=== PATIENT | female | born 1975 | race Caucasian/White ===

== ENCOUNTER → 2019-09-02 09:20 | Outpatient (BNVA) | payer MEDICARE, SELFPAY | PROVIDERS: Family Provider Nurse Practitioner Family; PCP Family Medicine; Referring Provider Family Medicine; Visit Provider Psychiatry & Neurology Neurology | DX: G56.01 Carpal tunnel syndrome, right upper limb (principal) | CPT/HCPCS: 95886; 95911 ==

== ENCOUNTER 2019-09-27 05:26 | Day surgery (SDC) | payer MEDICARE, SELFPAY ==
[2019-09-21 12:17] VITALS: BMI 22.5
[2019-09-21 12:36] VITALS: BMI 36.8
[2019-09-27 06:02] VITALS: BP 151/98; PULSE 82; RESP 18; TEMP 36.1; O2SAT 98
[2019-09-27] MEDS: sodium chloride 0.9% 1,000 ML 30 ML IV (06:16)
--- NOTE | 2019-09-27 06:19 | ANES.PREANE2 ---
Pre-Anesthetic Assessment Pre-Anesthetic Assessment: Height/Weight: Height 1.73 m Weight 109.769 kg Temp Pulse Resp BP Pulse Ox 97 F L 82 18 151/98 98 09/27/19 06:02 09/27/19 06:02 09/27/19 06:02 09/27/19 06:02 09/27/19 06:02 Preop Diagnosis: right carpal tunnel and long trigger finger Proposed Procedure: Operation Date: 09/22/19 15:30 Proposed Procedures p Carpal Tunnel Release [id number] G56.01 M65.331(Right) - Bubba Zabala DO s Trigger Finger Release(Right) - Bubba Zabala DO Operation Date: 09/27/19 07:00 Proposed Procedures p Carpal Tunnel Release [id number] [id number] G56.01 M65.331(Right) - Bubba Zabala DO s Trigger Finger Release(Right) - Bubba Zabala DO Last intake: Intake Last Liquid Date 09/26/19 Last Liquid Time 21:30 Last Solid Date 09/26/19 Last Solid Time 20:00 Social: Social History: Tobacco (quit) and No alcohol Exam: Pre-Anes Outpt Exam: alert, oriented x 3, clear to auscultation bilaterally and regular rate & rhythm Airway: Submandibular: WNL Cervical ROM: WNL MP: 3 Dentition: Other (missing upper right) Pulmonary: Pulmonary: None reported CV/HEM: CV/HEM: None reported : : None reported Hepatic: Hepatic: None reported GI: GI: GERD (controlled) Metabolic: Metabolic: Morbid obesity Musc/skel: Musc/skel: Lower Back Pain (chronic) Neuropsych: Neuropsych: None reported Anesthetic Plan: ASA status: 2 Anesthesia: Anesthesia Evaluation and MAC Risk of > 500 ml blood loss (7ml/kg in children): No Meds/Allergies Current Medications: Current Medications Generic Name Dose Route Start Last Admin Trade Name Freq PRN Reason Stop Dose Admin Sodium Chloride 1,000 mls @ 30 ml s/hr 09/27/19 05:45 09/27/19 06:16 Sodium Chloride 0.9% IV 09/28/19 05:44 30 mls/hr .Q24H MARKO Administration PFSH Anesthesia PFSH: Medical History Back pain Social History Smoking and tobacco status: former smoker Alcohol intake: never Data Anesthesia Cardiac Studies: No Data to Display
--- NOTE | 2019-09-27 07:01 | W.PM.OPSUD ---
Surgery/Procedure H&P Update DATE OF PROCEDURE: September 27, 2019 DATE H&P PERFORMED: 09/16/19 H&P UPDATE INFORMATION: I have reviewed H&P completed within last 30 days and No changes to prior documentation PREOP DIAGNOSIS: right carpal tunnel and long trigger finger PRIMARY INDICATION FOR PROCEDURE: as above right ctr right long finger trigger digit release PLANNED PROCEDURE: Operation Date: 09/22/19 15:30 Proposed Procedures p Carpal Tunnel Release [id number] G56.01 M65.331(Right) - Bubba Zabala DO s Trigger Finger Release(Right) - Bubba Zabala DO Operation Date: 09/27/19 07:00 Proposed Procedures p Carpal Tunnel Release [id number] G56.01 M65.331(Right) - DO frida Mcconnell Trigger Finger Release(Right) - Bubba Zabala DO
--- NOTE | 2019-09-27 07:02 | PM.OP ---
Operative Report Date of procedure: September 27, 2019 Pre-op Diagnosis: right carpal tunnel and long trigger finger Post-op diagnosis: same Procedure Done: Right carpal tunnel release right long finger trigger digit release Specimens removed/disposition: n/a Pathology: none sent Surgeon: Bubba Zabala Anesthesia: MAC and Local Tourniquet time (min): 25 Tourniquet time: at 250 mm Hg Complications: No complications Findings: Tight carpal tunnel Thickened tenosynovium about the tendons to right long finger Condition: stable Disposition: same day Brief History: 43-year-old white female with wrist pain and paresthesias in the median nerve distribution as well as triggering of her right long finger. Physical examination and electrodiagnostic studies are consistent with carpal tunnel syndrome. She has triggering of the right long finger with episodes of locking. Risk, benefits of potential complications surgical venture discussed with the patient. Risks include are not limited to: Failure to relieve all symptoms, possible recurrence of symptoms, wound healing complications, nerve/blood vessel/injury. Patient is agreeable to proceed with surgery all questions answered Procedure: 600 mg clindamycin Patient identified. Surgical site is signed. Surgical permit signed. Patient received 600 mg of Clindamycin IV for surgical prophylaxis. Patient was taken to the Operating Room. Patient was transferred to the Operating Room table. Patient was placed supine on the OR table. Patient received intravenous sedation. Time out was performed. The area of surgery of the right hand was injected with 10 cc of a 1:1 mixture of 1% lidocaine with epinephrine and 0.25% Marcaine. A tourniquet was placed about the upper aspect of the operative limb. Patient was then sterilely prepped and draped in usual fashion. The upper extremity was exsanguinated using an Esmarch bandage and the tourniquet was inflated to 250 mm of Hg pressure. A 2 cm transverse incision overlying the long finger flexor tendons in the area of the A1 agnieszka was made with a skin knife. The incision was deepened using tenotomy scissors exposing underlying flexor tendons and tendon sheath. Retractors were placed on the radial and ulnar aspects of the flexor tendons to the left long finger. Using tenotomy scissors the A1 agnieszka was released. Using a hemostat verified that the release was complete. Using a hemostat we remove the flexor tendons from the wound and inspected them. No tendon pathology was noted other than thickening of the overlying tenosynovium. A 4cm palmar incision was made with a #15 blade. Dissection carried down through skin and subcutaneous tissue. We incised the transverse carpal ligament. The transverse carpal ligament was undermined proximally. The wrist was extended and then using a pushing scissors technique, the proximal extent of the transverse carpal ligament was divided. We verified the release was complete. Using scissors technique dissection, we released the distal extent of the transverse carpal ligament and the deep layer of the palmar fascia to the level of the superficial palmar arch. The median nerve was identified as well as the recurrent branch that was preserved. No other pathology noted in the carpal tunnel. Once again, we verified the release was complete. The wounds were irrigated with sterile saline containing Betadine and sterile saline containing antibiotic solution. Skin closure was performed with interrupted sutures of 4-0 nylon. Antibiotic ointment was applied to the surgical incision. Sterile dressings were applied. The tourniquet was deflated. A volar plaster splint was applied with an Rajeev overwrap. The patient was aroused from sedation. Patient was taken to the outpatient surgery area. Patient tolerated the surgery well. All counts were correct.
[2019-09-27] MEDS: clindamycin 600 MG/50 ML PREMIX 100 MG IV (07:03)
[2019-09-27] MEDS: lidocaine 1% INJ 20 mL SUBCUT (07:34)
[2019-09-27] MEDS: neomycin-poly-bacitracin oint 28 gm 1 APPLIC TOPICAL (07:35)
[2019-09-27 08:01] VITALS: BP 130/81; PULSE 89; RESP 20; TEMP 36.1; O2SAT 97
[2019-09-27 08:23] VITALS: BP 120/85; PULSE 81; RESP 20; O2SAT 100
== END 2019-09-27 08:30 | disposition home or self-care (01) ==
PROVIDERS: Family Provider Nurse Practitioner Family; PCP Family Medicine; Visit Provider Orthopaedic Surgery
PROC: (CPT 64721; principal; 2019-09-27 07:00)
PROC: (CPT 26055; 2019-09-27 07:00)
DX: G56.01 Carpal tunnel syndrome, right upper limb (principal); M65.331 Trigger finger, right middle finger; K21.9 Gastro-esophageal reflux disease without esophagitis; E66.01 Morbid (severe) obesity due to excess calories; Z68.36 Body mass index [BMI] 36.0-36.9, adult; Z87.891 Personal history of nicotine dependence
CPT/HCPCS: 26055; 64721; 12345; J1580; J2001; J2704; J3010; J3490; J7030

== ENCOUNTER 2019-09-29 15:04 | Outpatient (CLI) | payer MEDICARE, SELFPAY | END 2019-09-29 15:05 | disposition home or self-care (01) | LOC: SPT 15:05 | PROVIDERS: Family Provider Nurse Practitioner Family; PCP Family Medicine; Visit Provider Orthopaedic Surgery | DX: Z98.890 Other specified postprocedural states (principal) | CPT/HCPCS: A6446; L3908 ==

== ENCOUNTER 2019-11-03 08:30 | Day surgery (SDC) | payer MEDICARE, SELFPAY ==
[2019-11-02 14:18] VITALS: BMI 36.5
--- NOTE | 2019-11-03 08:25 | W.PM.OPSUD ---
Surgery/Procedure H&P Update DATE OF PROCEDURE: November 03, 2019 DATE H&P PERFORMED: 11/03/19 H&P UPDATE INFORMATION: I have reviewed H&P completed within last 30 days and H&P is in [facility] EMR on date indicated PREOP DIAGNOSIS: left long trigger finger PLANNED PROCEDURE: Operation Date: 11/03/19 11:25 Proposed Procedures p Trigger Finger Release [id number] M65.332(Left) - Bubba Zabala DO
--- NOTE | 2019-11-03 08:26 | P.OP_ITS ---
Operative Report Date of procedure: November 03, 2019 Pre-op Diagnosis: left long trigger finger Post-op diagnosis: same Procedure Done: Release A1 agnieszka left long finger Pathology: none sent Surgeon: Bubba Zabala Anesthesia: MAC and Local Estimated blood loss (mL): 2 Tourniquet time (min): 15 Tourniquet time: at 250 mmHg Complications: No apparent complications Findings: no specific tendon pathology noted Condition: stable Disposition: same day Brief History: 43 y/o white female who is had complaints of bilateral long finger triggering. She is undergone previous release of the right long finger as well as carpal tunnel surgery and has done well. She is had persistent tri ggering of her left long finger. She is tried conservative treatments. She is aware of risk, benefits potential complications of surgery. Risks include but are not limited to infection, nerve/blood vessel/tendon injury, failure to relieve all pain potential recurrence of triggering. Medical complications can include blood clots, heart attack, stroke risk up to including . All questions were answered patient agreeable to proceed with surgery. Procedure: Patient identified. Surgical site was signed. Surgical permit was signed. The patient received 600 mg of clindamycin intravenously for surgical prophylaxis as she is penicillin allergic. She was taken to the operating. She is placed supine on the OR table. She is administered intravenous sedation. A digital block was made with 9 cc of a one-to-one mixture 1% lidocaine and half percent Marcaine both without epinephrine. Drinks placed at the upper aspect of the left upper extremity. The left upper extremities and sterilely prepped and draped. The patient developed a rash last time with Hibiclens alcohol and DuraPrep so today we used Hibiclens the alcohol and then ChloraPrep to hopefully avoid a rash. A timeout was performed. Operative limb was exsanguinated using Esmarch bandage tourniquet flighted 250 mmHg pressure. A transverse incision was made in the distal palm in line with the long finger. Self-retaining retractors placed in the wound. The flexor tendon sheath is identified. Using a number 11 blade we incised the leading edge of the A1 agnieszka. Then using a tenotomy scissor and a pushing scissors technique we release the A1 agnieszka in its entirety. I release the tendon sheath proximal to the A1 agnieszka. Tendons were inspected. Wound is irrigated with antibiotic containing sterile saline. Incision was closed with 4-0 nylon sutures on skin sterile dressings were applied. The patient was aroused from sedation and was able to flex and extend her left long finger without any triggering. She was taken back to outpatient surgery later to be discharged home. All counts are correct patient tolerated surgery well
--- NOTE | 2019-11-03 09:09 | W.PM.OPSUD ---
Surgery/Procedure H&P Update DATE OF PROCEDURE: November 03, 2019 DATE H&P PERFORMED: 11/03/19 H&P UPDATE INFORMATION: I have reviewed H&P completed within last 30 days and I have examined patient prior to procedure PREOP DIAGNOSIS: left long trigger finger PRIMARY INDICATION FOR PROCEDURE: left long finger pain an triggering PLANNED PROCEDURE: Operation Date: 11/03/19 11:25 Proposed Procedures p Trigger Finger Release [id number] M65.332(Left) - Bubba Zabala DO
--- NOTE | 2019-11-03 09:11 | W.PM.OPSUD ---
Surgery/Procedure H&P Update DATE OF PROCEDURE: November 03, 2019 DATE H&P PERFORMED: 11/03/19 H&P UPDATE INFORMATION: I have reviewed H&P completed within last 30 days, I have examined patient prior to procedure and No changes to prior documentation PREOP DIAGNOSIS: left long trigger finger PRIMARY INDICATION FOR PROCEDURE: Left long finger triggering and pain PLANNED PROCEDURE: Operation Date: 11/03/19 11:25 Proposed Procedures p Trigger Finger Release [id number] M65.332(Left) - Bubba Zabala DO
[2019-11-03 09:20] VITALS: BP 165/78; PULSE 77; RESP 18; TEMP 36.3; O2SAT 98
[2019-11-03] MEDS: sodium chloride 0.9% 1,000 ML 30 ML IV (09:28)
--- NOTE | 2019-11-03 10:14 | ANES.PREANE2 ---
Pre-Anesthetic Assessment Pre-Anesthetic Assessment: Height/Weight: Height 1.73 m Weight 108.862 kg Temp Pulse Resp BP Pulse Ox 97.4 F L 77 18 165/78 98 11/03/19 09:20 11/03/19 09:20 11/03/19 09:20 11/03/19 09:20 11/03/19 09:20 Preop Diagnosis: left long trigger finger Proposed Procedure: Operation Date: 11/03/19 11:25 Proposed Procedures p Trigger Finger Release [id number] M65.332(Left) - Bubba Zabala DO Last intake: Intake Last Liquid Date 11/02/19 Last Liquid Time 20:00 Last Solid Date 11/02/19 Last Solid Time 20:00 Social: Social History: Tobacco (quit) and No alcohol Exam: Pre-Anes Outpt Exam: alert, oriented x 3, clear to auscultation bilaterally and regular rate & rhythm Airway: Submandibular: WNL Cervical ROM: WNL MP: 3 Dentition: Other (missing upper right) History/ROS: No significant history except as noted Pulmonary: Pulmonary: None reported CV/HEM: CV/HEM: None reported : : None reported Hepatic: Hepatic: None reported GI: GI: None reported Metabolic: Metabolic: Morbid obesity Musc/skel: Musc/skel: Lower Back Pain Neuropsych: Neuropsych: None reported Anesthetic Plan: ASA status: 2 Anesthesia: Anesthesia Evaluation and MAC Risk of > 500 ml blood loss (7ml/kg in children): No Meds/Allergies Current Medications: Current Medications Generic Name Dose Route Start Last Admin Trade Name Freq PRN Reason Stop Dose Admin Sodium Chloride 1,000 mls @ 30 ml s/hr 11/03/19 09:00 11/03/19 09:28 Sodium Chloride 0.9% IV 11/04/19 08:59 30 mls/hr .Q24H MARKO Administration PFSH Anesthesia PFSH: Medical History Back pain Social History Smoking and tobacco status: former smoker Alcohol intake: never Data Anesthesia Cardiac Studies: No Data to Display
[2019-11-03] MEDS: clindamycin 600 MG/50 ML PREMIX 100 MG IV (10:32)
[2019-11-03] MEDS: lidocaine 1% INJ 20 mL SUBCUT (10:45)
[2019-11-03] MEDS: neomycin-poly-bacitracin oint 28 gm 1 APPLIC TOPICAL (11:06)
[2019-11-03 11:19] VITALS: BP 106/84; PULSE 74; RESP 18; TEMP 36.6; O2SAT 100
[2019-11-03 11:27] VITALS: BP 106/84; PULSE 92; RESP 18; O2SAT 97
== END 2019-11-03 11:48 | disposition home or self-care (01) ==
PROVIDERS: Family Provider Nurse Practitioner Family; PCP Family Medicine; Visit Provider Orthopaedic Surgery
PROC: (CPT 26055; principal; 2019-11-03 11:15)
DX: M65.332 Trigger finger, left middle finger (principal); Z87.891 Personal history of nicotine dependence; E66.01 Morbid (severe) obesity due to excess calories; Z68.36 Body mass index [BMI] 36.0-36.9, adult
CPT/HCPCS: 26055; 12345; 96365; J1580; J2001; J2250; J2704; J3010; J3490; J7030

== ENCOUNTER 2019-11-29 13:58 | Outpatient (CLI) | payer MEDICARE, SELFPAY ==
--- NOTE | 2019-12-03 15:58 | ONC CON_ITS ---
Dr. Ahmadi New Patient Note Patient: Deepthi Penn Unit #: [id number]: [id number] Dicatated By: Jerald Ahmadi M.D.Date of Visit: November 29, 2019 Onc MED New Patient/Consult Referring Physician: Chief Complaint: Hemochromatosis. History of Present Illness: This is a 43 year-old woman with elevated serum ferritin and laboratory evidence of hereditary hemochromatosis. She has degenerative disease of the spine with chronic back pain and she has fibromyalgia. She has been seeing Dr. Pereira for primary care, and for at least the past year she also has been followed for mildly elevated liver enzymes. Her most recent chemistry profile, from 09/20/2019, showed SGOT elevated at 79/33 U/L and SGPT 132/33 U/L with alkaline phosphatase slightly elevated at 117/104 U/L and bilirubin normal at 0.4 mg/dL. Renal function was normal with BUN 6 and creatinine 0.51 mg/dL. CBC was unremarkable with hemoglobin 13.2 g, white blood cell count 5400, and platelet count 265,000. Additional laboratory studies on 10/13/2019 included serum iron studies which showed elevated transferrin saturation at 51% and a ferritin level which was significantly elevated at 1021 ng/mL. An VEENA screen was negative. Ceruloplasmin level was normal at 21.2 mg/dL. She had further evaluation with an HFE gene analysis on 10/20/2019. 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 The H63D and the S65C mutations were not detected. She does complain that she has been more tired than normal. She is doing light work, though. ECOG score is 1. She has good appetite. She says she has been stress eating. She has had a weight gain in the range of 20 pounds this past month. She has not had fever. She says she feels hot all the time and she does have some hot flashes at night. She complains that her eyes are dry. She has not had sore mouth or throat and she has not had difficulty swallowing. She does not complain of shortness of breath, cough, or chest pain. He says she is nauseated all the time. She also has been having acid reflux symptoms. Her bowels chronically vary between constipation and diarrhea. She has not been aware of any blood in the stool. She had a colonoscopy somewhere in the range of 5 years ago. She has urinary frequency and nocturia. She has chronic back pain. She also complains that her joints are starting to hurt, mainly the knees, ankles, and feet. She also has had pain in both hands. She does not complain of headache. She has had spells of dizziness. She has no numbness/paresthesia or other focal neurologic symptoms. She does complain of having shaking spells lasting from an hour to an hour and a half. Past Medical History: Her medical history includes degenerative disease of the spine with chronic back pain and fibromyalgia. She has a history of endometriosis. Past Surgical History: Her surgical/procedural history includes carpal tunnel release on the right, cholecystectomy, tonsillectomy, trigger finger release on both hands, wisdom teeth extraction, hysterectomy with bilateral salpingo-oophorectomy in 1999, and tubal ligation in 1998. Medications: Cholecalciferol 1 (50 mcg ) Tablet Oral, Gabapentin 1 Capsule (of 300 mg) Oral t.i.d., HYDROcodone-Acetaminophen 1 Tablet (of 5-325 mg) Oral t.i.d., Meloxicam 1 (15 mg) Tablet Oral daily, tiZANidine HCl 1 (2 mg) Tablet Oral b.i.d. Allergies: Pencillins Social History: Ms. Penn is . She has disabled due to her back pain. She has a history of smoking at least 1 pack of cigarettes daily for somewhere in the range of 20 to 25 years. She quit smoking in 2018. She has had only rare alcohol use. Family History: Father of heart attack at age 61. Mother is still living at age 68. She has diabetes, hypertension, and rheumatoid arthritis. She has one brother who has high blood pressure and one sister who is in good health. Her paternal grandfather had colon cancer. Review Of Symptoms: Constitutional - She has been feeling more tired than normal. She is able to do light work. Her appetite has been okay. She has been stress eating. She says she has had a weight gain of 20 pounds in the last month. She has not had fever. She says she feels hot all the time, and she does have some hot flashes at night. Her ECOG score is 1, Eyes - She complains that her eyes are dry, ENMT - No hearing loss or tinnitus. She says her nose tends to be plugged when she wakes up in the morning. No mouth sores. No sore throat or difficulty swallowing, Hematologic/Lymphatic - She bruises very easily, Respiratory - No shortness of breath. No cough. No pleuritic pain or hemoptysis, Cardiovascular - No angina pain. No palpitations, Gastrointestinal - She complains that she is nauseated all the time. She has been having acid reflux. She says the famotidine is not working. Her bowels vary between constipation and diarrhea. She has not been aware of any blood in the stool or black stools. She had a colonoscopy about 5 years ago, Genitourinary (F) - No dysuria or hematuria. She has urinary frequency and she has nocturia 3 or 4 times. No urgency or incontinence, Musculoskeletal - She has chronic back pain. She complains that her joints are starting to hurt, particularly the knees, ankles, and feet. She also has had pain in her hands, Integumentary - No skin rash or other skin changes, Neurologic - No headache. She has spells of dizziness. No numbness/paresthesias or other focal neurologic symptoms, Psychiatric - She has had anxiety and depression, and she has a lot of stress. She does not sleep well at night. Vital Signs: Performed on November 29, 2019 14:33: 6, 39.08 (HIGH), 2.27 sq.m, 68 in, 98 %, 88 /min, 18 /min, 112/82 mm(hg), 98.4 F, and 257 lbs (HIGH). Physical Examination: Constitutional - She appears to be in reasonably good general health, Eyes - Sclerae nonicteric. Conjunctivae clear, ENMT - No lesions noted in the oral cavity, Neck - No mass or thyromegaly, Hematologic/Lymphatic - No cervical, clavicular, or axillary adenopathy, Respiratory - Lungs are clear with good air movement bilaterally, Cardiovascular - Heart rhythm is regular. There is no murmur, gallop, or rub noted, Abdomen - Distended with mild tenderness in the upper abdomen. Liver is not enlarged or tender. Spleen is not palpable. There is no abdominal mass or ascites noted and there is no inguinal adenopathy, Back/Spine - No spine or CVA tenderness noted, Extremities - No edema. Pedal pulses are palpable bilaterally, Integumentary - No rashes. No suspicious skin lesions noted, Neurologic - No focal neurologic deficits noted. Lab/Imaging: Ultrasound of the liver in February 2019 was unrevealing. Impression: 1. Patient was significantly elevated serum ferritin and with evidence of heterozygosity for the C282Y mutation on her HFE gene analysis. This is consistent with hereditary hemochromatosis, but it is uncertain to what extent the elevated ferritin may accurately reflect her storage iron, as her transferrin saturation is just slightly elevated. 2. She has mildly elevated liver enzymes and she also has had recent onset of joint pain. Again, it is uncertain to what extent either of these may be due to iron overload or to other causes. 3. She has degenerative disease of the spine with chronic back pain, and she has fibromyalgia. Plan: The laboratory findings and clinical implications were reviewed with the patient. She has evidence of hereditary hemochromatosis with her HFE gene analysis showing heterozygosity for the C282Y mutation. The main concern is that individuals with this genotype may have mildly elevated iron levels, but they generally do not have organ damage associated with iron overload, and they typically do not require treatment. Her ferritin level, though, is in a range which would potentially be associated with organ damage. The issue, as noted, is to what extent it may actually reflect her storage iron as opposed to being elevated as an acute phase reactant. At least initially I will repeat some of her laboratory studies including the CBC, comprehensive metabolic profile, serum iron studies, and ferritin. I also will check sed rate, CRP level, and RA titer, and I will schedule her for CT of the abdomen to assess liver. She will have further evaluation as indicated. Ultimately, this may require a liver biopsy to accurately determine if she does have iron overload, in which case, she would need to be started on a phlebotomy program. Signed By: Jerald Ahmadi M.D. <<Signature on File>>
== END 2019-11-29 13:59 | disposition home or self-care (01) ==
LOC: ONCMED 13:58
PROVIDERS: PCP Family Medicine; Referring Provider Family Medicine; Visit Provider Internal Medicine Medical Oncology
DX: E83.110 Hereditary hemochromatosis (principal); M48.9 Spondylopathy, unspecified; M79.7 Fibromyalgia
CPT/HCPCS: 99205

== ENCOUNTER 2019-12-06 08:49 | Outpatient (CLI) | payer MEDICARE, SELFPAY ==
--- NOTE | 2019-12-06 09:05 | CT_ITS ---
WS: [id number] CT ABDOMEN WITH CONTRAST HISTORY: ELEVATED LIVER ENZYMES Contiguous single phase 5 mm axial imaging performed to the abdomen. Oral contrast has been provided. Coronal and sagittal reformats are submitted. All CT scans at [facility] use at least on e of these dose optimization techniques: automated exposure control; mA and/or kV adjustment per kendal ent size (includes targeted exams where dose is matched to clinical indication); or iterative reconst ruction. CONTRAST: Omnipaque 300; 95 mL IV. DLP: 1765.58 mGy.cm COMPARISON: 03/27/2014 Lower thorax: Benign granuloma at the lingula. No pneumonia or nodules. Small hiatal hernia. Liver: Liver is moderately enlarged measuring 20.1 cm in length. There is diffuse low attenuation fro m hepatic steatosis. Portal vein is normal size. No mass. Gallbladder: Prior cholecystectomy. Pancreas: Normal. Spleen: Normal. Adrenals: Fatty tumor in the RIGHT adrenal gland measures 18 mm and was present on the prior study. L EFT adrenal gland is normal. Right kidney: Small extrarenal pelvis on the RIGHT. No mass or obstruction. Left kidney: Normal. Aorta: Normal. GI tract: As visualized within the upper abdomen no acute abnormalities. Mild fecal retention in the RIGHT colon. No adenopathy or free fluid. Abdominal wall: No hernia. Visualized osseous structures: Unremarkable. CT/CT abdomen w con* [id number] IMPRESSION: 1. Moderate hepatomegaly and hepatic steatosis. 2. Normal spleen. 3. RIGHT adrenal myelolipoma. 4. Prior cholecystectomy.
[2019-12-06] MEDS: iohexol 300 mg/mL 50 mL Btl PO (09:10)
[2019-12-06 09:40] LABS: Basophils % 0.7 %; Eosinophils # 0.3 10^3/uL (0.0-0.8); Eosinophils % 6.3 %; Hematocrit 42.3 % (37.0-47.0); Hemoglobin 13.6 g/dL (11.5-15.3); Lymphocytes % 36.3 %; Mean Corpuscular HGB Conc 32.2 g/dL (30.0-36.0); Mean Corpuscular Hemoglobin 30.4 pg (28.0-34.0); Mean Corpuscular Volume 94.6 fL (81-99); Mean Platelet Volume 10.8 fL (7.4-10.4); Monocytes # 0.6 10^3/uL (0.2-0.9); Monocytes % 11.4 %; Neutrophils # 2.4 10^3/uL (1.8-7.7); Neutrophils % 44.9 %; Nucleated Red Blood Cells % 0 %; Platelet Count 266 10^3/cmm (130-400); Red Blood Count 4.47 10^6/uL (4.1-5.3); Red Cell Distribution Width 12.8 % (12.1-15.1); White Blood Count 5.4 10^3/uL (4.0-10.0)
[2019-12-06 09:56] LABS: Alanine Aminotransferase 299 U/L (0-33); Albumin Level 4.7 g/dL (3.5-5.2); Alkaline Phosphatase 125 IU/L (35-105); Anion Gap 15.3 (5-19); Aspartate Amino Transferase 177 U/L (0-32); Blood Urea Nitrogen 12 mg/dL (6-20); C Reactive Protein 2.7 mg/L (0.0-4.9); Calcium 10.4 mg/dL (8.5-10.5); Carbon Dioxide 28 mmol/L (22-29); Chloride 102 mmol/L (98-107); Globulin 2.7 g/dL (1.3-4.6); Glomerular Filtration Rate 78.3 mL/min (90-130); Glucose 117 mg/dL (65-115); Iron 142 ug/dL (37-145); Osmolality Calculated 289 mOsm/kg (285-295); Percent Saturation 47.6 % (20-50); Potassium 4.3 mmol/L (3.5-5.1); Sodium 141 mmol/L (136-145); Total Bilirubin 0.6 mg/dL (0.15-1.2); Total Iron Binding Capacity 298 mcg/dl; Total Protein 7.4 g/dL (6.6-8.7); Unsaturated Iron Binding 156 ug/dL (112-347)
[2019-12-06 10:09] LABS: Ferritin 1007 ng/mL (15-150)
[2019-12-06 10:28] LABS: Erythrocyte Sedimentation Rate 12 mm/hr (0-15)
[2019-12-06] MEDS: iohexol 300 mg/mL 100 mL Btl IV (10:50)
== END 2019-12-06 08:50 | disposition home or self-care (01) ==
LOC: RAD 08:53
PROVIDERS: PCP Family Medicine; Visit Provider Internal Medicine Medical Oncology
DX: R74.8 Abnormal levels of other serum enzymes (principal); R16.0 Hepatomegaly, not elsewhere classified; K76.0 Fatty (change of) liver, not elsewhere classified; D17.79 Benign lipomatous neoplasm of other sites; Z90.49 Acquired absence of other specified parts of digestive tract
CPT/HCPCS: 36415; 74160; 80053; 82728; 83540; 83550; 85025; 85651; 86140; 86431

== ENCOUNTER 2020-01-02 10:33 | Outpatient (CLI) | payer MEDICARE, SELFPAY ==
[2020-01-02 11:26] LABS: Free T4 Free Thyroxine 1.13 ng/dL (0.82-1.77); Thyroid Stimulating Hormone 1.53 uIU/mL (0.27-4.20)
== END 2020-01-02 10:34 | disposition home or self-care (01) ==
LOC: ONCMED 10:37
PROVIDERS: PCP Family Medicine; Visit Provider Internal Medicine Medical Oncology
DX: R63.5 Abnormal weight gain (principal); R53.83 Other fatigue
CPT/HCPCS: 36415; 84439; 84443

== ENCOUNTER 2020-01-06 10:55 | Outpatient (CLI) | payer MEDICARE, SELFPAY ==
[2020-01-06 13:10] LABS: Urine Appearance Hazy (CLEAR); Urine Color Yellow (Yellow); pH Urine 5 (5-7)
[2020-01-06 13:11] LABS: Add Urine Microscopic? YES; Bilirubin Urine 1+ (NEGATIVE); Blood Urine Neg (Negative); Glucose Urine UA Norm (Normal); Ketones Urine 1+ (Negative); Leukocyte Esterase Urine Negative (Negative); Nitrate Urine Negative (Negative); Protein Urine Trace (Negative); Urobilinogen Urine 1 mg/dL (Negative)
[2020-01-06 13:12] LABS: Add Urine Culture? No; Bacteria Urine 1+; Calcium Oxalate Crystals Urine 15-25 /hpf; Mucus Urine 1+
--- NOTE | 2020-01-06 19:20 | ONC FU_ITS ---
Dr. Ahmadi Patient Follow-Up Note Patient: Deepthi Penn Unit #: [id number]: 1975 Dicatated By: Jerald Ahmadi M.D.Date of Visit:Jan 06, 2020 Onc Med Follow-up/Prog Note Chief Complaint: Hemochromatosis. History of Present Illness: This is a 44 year-old woman with elevated serum ferritin and laboratory evidence of hereditary hemochromatosis. She has degenerative disease of the spine with chronic back pain and she has fibromyalgia. She has been seeing Dr. Pereira for primary care, and for at least a year she had been followed for mildly elevated liver enzymes. Her chemistry profile from 09/20/2019 showed SGOT elevated at 79/33 U/L and SGPT 132/33 U/L with alkaline phosphatase slightly elevated at 117/104 U/L and bilirubin normal at 0.4 mg/dL. Renal function was normal with BUN 6 and creatinine 0.51 mg/dL. CBC was unremarkable with hemoglobin 13.2 g, white blood cell count 5400, and platelet count 265,000. Additional laboratory studies on 10/13/2019 included serum iron studies which showed elevated transferrin saturation at 51% and a ferritin level which was significantly elevated at 1021 ng/mL. An VEENA screen was negative. Ceruloplasmin level was normal at 21.2 mg/dL. She had further evaluation with an HFE gene analysis on 10/20/2019. 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 The H63D and the S65C mutations were not detected. I had seen her initially on 11/29/2019. Her repeat comprehensive metabolic profile on 12/06/2019 showed moderately elevated liver enzymes with SGOT 177/30 2U/L, SGPT 299/30 3U/L, and alkaline phosphatase 125/105 IUs/L. Bilirubin was normal at 0.6 mg/dL. The serum iron studies showed transferrin saturation in the high normal range at 47.6%. The ferritin was elevated at 1007 ng/mL. Her sed rate was normal at 12 mm/hour, and her RA titer was negative. Her CT abdomen/pelvis showed moderate hepatomegaly with hepatic steatosis. The spleen appeared normal. 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 It had been noted on a prior study from 2013. She is seen for a follow-up visit. She has been having multiple complaints, especially dizziness/lightheadedness. She has been getting it pretty much every day in the morning for the past week or so, lasting until about noon. She complains that she has no energy and that she is tired all the time. She is able to do light work. ECOG score is 1. She does not have much appetite, she is gaining weight. She has not had fever. She has lots of sweating, both during the daytime and at night. She complains of having blurred vision. She has been getting canker sores in her mouth during the last few months. Her breathing has been good for the most part, and she has not had cough. She occasionally has heaviness in her chest. She has been having nausea and she has been having a lot of heartburn, despite taking omeprazole. Her bowels fluctuate between constipation and diarrhea. She has occasional sharp pain in the abdomen. She has urinary frequency and nocturia. She has been having a lot of joint pain, especially in the wrists, knees, and ankles. She has a lot of back pain. She reports that her muscles have been cramping a lot. She has numbness/tingling in her feet. She has a cut on her right heel that will not heal. Medications: Cholecalciferol 1 (50 mcg ) Tablet Oral, Gabapentin 1 Capsule (of 600 mg) Oral t.i.d., HYDROcodone-Ibuprofen 1 Tablet (of 7.5-200 mg) Oral q 6 hours PRN, tiZANidine HCl 1 (2 mg) Tablet Oral b.i.d. Allergies: Pencillins Review of Systems: Constitutional - She complains that she has no energy. She is tired all the time. She does not have much appetite, but she is gaining weight. She has not had fever. She reports having a lot of sweating both during the daytime and at night. ECOG score is 1, Eyes - She has blurred vision, ENMT - No sinus congestion/drainage. She reports having canker sores intermittently during the past few months. No sore throat or difficulty swallowing, Hematologic/Lymphatic - She bruises easily, Respiratory - Her breathing recently has been good for the most part. No cough. No pleuritic pain or hemoptysis, Cardiovascular - She occasionally has heaviness in her chest. No palpitations, Gastrointestinal - She has nausea and she says her GERD symptoms are worse despite taking omeprazole. Her bowels fluctuate between constipation and diarrhea. She occasionally has sharp pain in the abdomen. No blood in the stool or black stools, Genitourinary (F) - No dysuria or hematuria. She has urinary frequency and nocturia. No urgency or incontinence, Musculoskeletal - She complains that her joints are hurting a lot, particularly the knees, wrists, and ankles, Integumentary - She has a cut on her right heel that will not heal, Neurologic - No headache. She has dizziness. She has numbness/tingling in her feet. No other focal neurologic symptoms, Psychiatric - She has anxiety/depression. She has difficulty sleeping. Vital Signs: Blood pressure 113/78, pulse 87, respirations 22, temp 97.4 degrees, oxygen saturation 98%. Her weight is 260 pounds. Physical Examination: Constitutional - She does not appear acutely ill, Eyes - Sclerae nonicteric. Conjunctivae clear, ENMT - No lesions noted in the oral cavity, Hematologic/Lymphatic - No cervical, clavicular, or axillary adenopathy, Respiratory - Lungs are clear with good air movement bilaterally, Cardiovascular - Heart rhythm is regular. There is no murmur, gallop, or rub noted, Abdomen - Soft with mild tenderness in the upper abdomen and in the lower abdominal area. Liver and spleen are not enlarged. There is no abdominal mass or ascites noted and there is no inguinal adenopathy, Extremities - No edema, Neurologic - She has mild postural instability. There are no focal neurologic deficits noted. Lab/Imaging: Test performed on December 06, 2019 09:25 Ferritin 1007 ng/mL Iron 142 mcg/dL Sodium 141 mmol/L Iron Binding Capacity (TIBC) 298 mcg/dl Potassium 4.3 mmol/L % Iron Saturation 47.6 % Chloride 102 mmol/L CO2 28 mmol/L UIBC 156 mcg/dL Anion Gap 15.3 BUN 12 mg/dL Creatinine 0.8 mg/dL Cr Clearance (Est) 166.8700 mL/min eGFR 78.3 mL/min Glucose 117 mg/dL Calcium 10.4 mg/dL Protein, Total 7.4 g/dL Albumin 4.7 g/dL Globulin 2.7 g/dL Bilirubin, Total 0.6 mg/dL ALT (SGPT) 299 U/L AST (SGOT) 177 U/L Alkaline Phosphatase 125 IU/L ESR (Sed Rate) 12 mm/hr WBC 5.4 10 3/uL RBC 4.47 10 6/uL HGB 13.6 g/dL HCT 42.3 % MCV 94.6 fL MCH 30.4 pg MCHC 32.2 g/dL RDW 12.8 % Platelet Count 266 10 3/cmm MPV 10.8 fL Neutrophils 2.4 10 3/uL Lymphocytes 2.0 10 3/uL Monocytes 0.6 10 3/uL Eosinophils 0.3 10 3/uL Basophils 0.0 10 3/uL Neutrophil % 44.9 % Lymphocyte % 36.3 % Monocyte % 11.4 % Eosinophil % 6.3 % Basophils % 0.7 % Impression: 1. Patient with heterozygosity for the C282Y mutation on her HFE gene analysis. This is consistent with hereditary hemochromatosis, but it is uncertain to what extent it may be clinically significant. 2. Her transferrin saturation is in the upper normal range, which is typical for the heterozygous state. Her serum ferritin it is significantly elevated, but I suspect that it is not accurate indication of elevated storage iron. 3. She has moderately elevated liver enzymes with CT evidence of moderate hepatomegaly and hepatic steatosis, consistent with nonalcoholic steatohepatitis. 4. She has degenerative disease of the spine with chronic back pain, and she has fibromyalgia. I have not recommended treatment for hemochromatosis, as I do not think that the elevated ferritin is reflective of increased storage iron. She does need to see a primer inspector in regard to the nonalcoholic steatohepatitis, and the liver biopsy may be indicated to actually rule out excess storage iron in the liver. That referral is apparently in process. In the meantime, she comes in with multiple complaints, the most significant of which appear to be dizziness/lightheadedness. I think this may just be a side effect of the gabapentin, which she had started fairly recently. Plan: She is advised to stop the gabapentin. I also will see if I can change her PPI from omeprazole to Protonix, preferably twice a day we can get it covered. I will look into the possibility of arranging referral to a primer inspector in [place], which she would prefer over going to [place]. Signed By: Jerald Ahmadi M.D. <<Signature on File>>
== END 2020-01-06 10:56 | disposition home or self-care (01) ==
LOC: ONCMED 10:58
PROVIDERS: PCP Family Medicine; Visit Provider Internal Medicine Medical Oncology
DX: E83.110 Hereditary hemochromatosis (principal); R35.0 Frequency of micturition; R35.1 Nocturia; R74.8 Abnormal levels of other serum enzymes; R42 Dizziness and giddiness; R16.0 Hepatomegaly, not elsewhere classified; K76.0 Fatty (change of) liver, not elsewhere classified; M47.9 Spondylosis, unspecified; M79.7 Fibromyalgia
CPT/HCPCS: 81001; 99214

== ENCOUNTER 2020-01-16 10:48 | Outpatient (CLI) | payer MEDICARE, SELFPAY ==
[2020-01-16 11:17] LABS: Add Urine Microscopic? NO
[2020-01-16 12:36] LABS: Bilirubin Urine Neg (NEGATIVE); Blood Urine Neg (Negative); Glucose Urine UA Norm (Normal); Ketones Urine Negative (Negative); Leukocyte Esterase Urine Negative (Negative); Nitrate Urine Negative (Negative); Protein Urine Neg (Negative); Urine Appearance Clear (CLEAR); Urine Color Straw (Yellow); Urobilinogen Urine Norm (Negative); pH Urine 6.5 (5-7)
== END 2020-01-16 10:49 | disposition home or self-care (01) ==
LOC: ONCMED 10:51
PROVIDERS: PCP Family Medicine; Visit Provider Internal Medicine Medical Oncology
DX: E83.110 Hereditary hemochromatosis (principal); M79.7 Fibromyalgia; M47.9 Spondylosis, unspecified; N80.9 Endometriosis, unspecified
CPT/HCPCS: 81003

== ENCOUNTER → 2020-03-23 10:14 | Outpatient (BNVA) | payer MEDICARE, SELFPAY | PROVIDERS: PCP Family Medicine; Visit Provider Internal Medicine | DX: M60.9 Myositis, unspecified (principal); Z79.899 Other long term (current) drug therapy; Z11.59 Encounter for screening for other viral diseases; Z11.1 Encounter for screening for respiratory tuberculosis | CPT/HCPCS: 36415; 81003; 82550; 83516; 84100; 85651; 86140; 86431; 86480; 86704; 86803; 87340; 99203; 99204 ==

== ENCOUNTER → 2020-04-13 08:56 | Outpatient (BNVA) | payer MEDICARE, SELFPAY | PROVIDERS: PCP Family Medicine; Referring Provider Internal Medicine; Visit Provider Specialist | DX: M60.9 Myositis, unspecified (principal); M79.7 Fibromyalgia; K75.81 Nonalcoholic steatohepatitis (NASH); E66.01 Morbid (severe) obesity due to excess calories | CPT/HCPCS: 99202 ==

== ENCOUNTER → 2020-07-11 11:15 | Outpatient (BNVA) | payer MEDICARE, SELFPAY | PROVIDERS: PCP Family Medicine; Visit Provider Internal Medicine | DX: R74.8 Abnormal levels of other serum enzymes (principal); E83.119 Hemochromatosis, unspecified; M79.7 Fibromyalgia; M62.82 Rhabdomyolysis; G62.9 Polyneuropathy, unspecified; M79.606 Pain in leg, unspecified; Z87.891 Personal history of nicotine dependence | CPT/HCPCS: 99214 ==

== ENCOUNTER → 2020-08-09 09:21 | Outpatient (BNVA) | payer MEDICARE, SELFPAY | PROVIDERS: PCP Family Medicine; Visit Provider Surgery | DX: Z01.812 Encounter for preprocedural laboratory examination (principal); M60.9 Myositis, unspecified | CPT/HCPCS: 87635 ==

== ENCOUNTER 2020-08-13 05:48 | Day surgery (SDC) | payer MEDICARE, SELFPAY ==
[2020-08-10 13:29] VITALS: BMI 39.5
[2020-08-13 05:59] VITALS: BP 151/98; PULSE 82; RESP 20; TEMP 36.4; O2SAT 98
[2020-08-13] MEDS: sodium chloride 0.9% 1,000 ML 30 ML IV (06:14)
--- NOTE | 2020-08-13 06:22 | P.ANESASSM_ITS ---
Pre-Anesthetic Assessment Pre-Anesthetic Assessment: Height/Weight: Height 1.73 m Weight 117.934 kg Temp Pulse Resp BP Pulse Ox 97.6 F 82 20 H 151/98 98 08/13/20 05:59 08/13/20 05:59 08/13/20 05:59 08/13/20 05:59 08/13/20 05:59 Preop Diagnosis: myositis Proposed Procedure: Operation Date: 08/13/20 07:30 Proposed Procedures p Muscle Biopsy R LE M60.9(Right) - Donny Weinberg MD Familial anesthetic complications: NOne Was Beta Brandie taken within 24 hours: N/A Last intake: Intake NPO > 8 hrs Last Liquid Date 08/12/20 Last Solid Date 08/12/20 Social: Social History: No alcohol and No tobacco Exam: Pre-Anes Outpt Exam: alert, oriented x 3, clear to auscultation rajeev aterally and regular rate & rhythm Airway: Cervical ROM: WNL MP: 2 Dentition: Other (1 tooth in front) Additional comments: missing, denies chipped or loose teeth Hepatic: Comments: LAUREN, hemochromotosis Metabolic: Metabolic: Morbid obesity Musc/skel: Musc/skel: Fibromyalgia Comments: myositis Neuropsych: Neuropsych: Neuropathy Anesthetic Plan: ASA status: 2 Anesthesia: MAC Risk of > 500 ml blood loss (7ml/kg in children): No Meds/Allergies Current Medications: Current Medications Generic Name Dose Route Start Last Admin Trade Name Freq PRN Reason Stop Dose Admin Sodium Chloride 1,000 mls @ 30 ml s/hr 08/13/20 06:00 08/13/20 06:14 Sodium Chloride 0.9% IV 08/14/20 05:59 30 mls/hr .Q24H MARKO Administration PFSH Anesthesia PFSH: Medical History Anxiety Back pain GERD (gastroesophageal reflux disease) Hemochromatosis IBS (irritable bowel syndrome) Myositis Neuropathy Surgical History H/O colonoscopy 7-8 yrs ago H/O esophagogastroduodenoscopy 01/2020 Hx of cholecystectomy Hx of hysterectomy Hx of oral surgery Hx of tonsillectomy Hx of tubal ligation Family History Father CAD (coronary artery disease) Grandfather Cancer colon Other Diabetes Denies family history of Anesthesia complication Bleeding disorder Social History Smoking and tobacco status: former smoker Alcohol intake: never Household members: spouse Marital status: Current occupational status: disabled History of recent travel: No Data Anesthesia Cardiac Studies: No Data to Display
--- NOTE | 2020-08-13 06:54 | W.PM.OPSUD ---
Surgery/Procedure H&P Update DATE OF PROCEDURE: August 13, 2020 DATE H&P PERFORMED: 08/03/20 H&P UPDATE INFORMATION: I have reviewed H&P completed within last 30 days, I have examined patient prior to procedure and No changes to prior documentation PREOP DIAGNOSIS: myositis PLANNED PROCEDURE: Operation Date: 08/13/20 07:30 Proposed [place] [address] M60.9(Right) - Donny Weinberg MD
[2020-08-13] MEDS: lidocaine 1% INJ 20 mL IM (08:08)
--- NOTE | 2020-08-13 08:13 | PM.OP ---
Operative Report Date of procedure: August 13, 2020 Pre-op Diagnosis: myositis Post-op diagnosis: same Procedure Done: Right vastus lateralis muscle biopsy Specimens removed/disposition: Vastus lateralis muscle biopsy Anesthesia: MAC Condition: stable Disposition: same day Procedure: The patient was taken to the operating room and placed under MAC. The right thigh was prepped and draped in a sterile manner around the site preoperatively marked where she had maximal tenderness. 1% Marcaine with 0.5% Marcaine was infiltrated around the area. Using a 15 blade a 3 cm longitudinal incision was made, subcutaneous tissue and muscle fascia was divided using electrocautery and the vastus lateralis muscle was identified. 4 separate specimens measuring about 3 cm were sent in saline to pathology. Wound was irrigated with saline. There is no significant bleeding noted. The fascia was closed using [id number] 0 Vicryl suture, subcutaneous tissue approximated using 3-0 Vicryl suture and skin was closed using running subcuticular 4-0 Monocryl suture and surgical glue. The patient was stable throughout the procedure
[2020-08-13 08:24] VITALS: BP 132/94; PULSE 83; RESP 18; TEMP 36.6; O2SAT 99
[2020-08-13] MEDS: HYDROcodone-acetaminophen 5-325 mg Tablet 1 TAB PO (08:43)
[2020-08-13 08:45] VITALS: BP 132/94; PULSE 79; RESP 18; O2SAT 99
[2020-08-13 09:02] VITALS: BP 105/83; PULSE 78; RESP 18; O2SAT 99
--- NOTE | 2020-08-13 14:56 | ANE.PACU2 ---
Inpatient post-anesthesia follow up: Airway intact: Yes Vital signs: Temperature 97.9 F Pulse Rate 78 Respiratory Rate 18 Blood Pressure 105/83 Pulse Oximetry 99 Oxygen Delivery Me thod Room Air Oxygen Flow Rate Fraction of Inspir ed Oxygen Hydration adequate: Yes Nausea and vomiting: No Pain level: 2 Mental status: Baseline
== END 2020-08-13 09:44 | disposition home or self-care (01) ==
PROVIDERS: PCP Family Medicine; Visit Provider Surgery
PROC: (CPT 20205; principal; 2020-08-13 07:30)
DX: M60.9 Myositis, unspecified (principal); E66.01 Morbid (severe) obesity due to excess calories; Z68.39 Body mass index [BMI] 39.0-39.9, adult; M79.7 Fibromyalgia; F41.9 Anxiety disorder, unspecified; Z87.891 Personal history of nicotine dependence; Z79.52 Long term (current) use of systemic steroids
CPT/HCPCS: 20205; 12345; 88300; 88341; 88342; J2250; J2405; J2704; J3010; J3490; J7030

== ENCOUNTER → 2023-02-19 07:57 | Outpatient (BNVA) | payer MEDICARE, SELFPAY | PROVIDERS: PCP Family Medicine; Visit Provider Student in an Organized Health Care Education/Training Program | DX: M25.511 Pain in right shoulder (principal); M25.812 Other specified joint disorders, left shoulder | CPT/HCPCS: 20610; 73030; 99204; J3301 ==

== ENCOUNTER 2023-04-22 09:22 | Outpatient (CLI) | payer MEDICARE, SELFPAY ==
--- NOTE | 2023-04-22 09:30 | MM_ITS ---
WS: [id number] BILATERAL SCREENING DIGITAL TOMOSYNTHESIS MAMMOGRAM WITH CAD HISTORY: SCREENING COMPARISON: 06/28/2020 Bilateral CC and MLO views with tomosynthesis and synthetic mammography submitted. Computer aided det ection analyzed. Breast composition: The breasts are almost entirely fatty. No suspicious masses, microcalcifications or architectural distortion. Benign calcifications in each breast. IMPRESSION: MM/[place] [id number] BI-RADS: 2-Benign FOLLOW UP: 1 Year Follow-up
== END 2023-04-22 09:23 | disposition home or self-care (01) ==
LOC: MOBLMAM 09:32
PROVIDERS: PCP Family Medicine; Visit Provider Registered Nurse
DX: Z12.31 Encounter for screening mammogram for malignant neoplasm of breast (principal)
CPT/HCPCS: 77063; 77067

== ENCOUNTER → 2023-05-19 08:06 | Outpatient (BNVA) | payer MEDICARE, SELFPAY | PROVIDERS: PCP Family Medicine; Visit Provider Physician Assistant | DX: M25.812 Other specified joint disorders, left shoulder (principal) | CPT/HCPCS: 99213 ==

== ENCOUNTER 2023-07-17 07:03 | Outpatient (CLI) | payer MEDICARE, SELFPAY ==
[2023-07-17 07:14] VITALS: BMI 34.9
--- NOTE | 2023-07-17 07:16 | ECG_ITS ---
[facility] Test Date: 2023-07-17 Pat Name: Deepthi Penn Department: Room: Gender: Female Global Director [employer] Change: Wilver Owusu : 1975 Requested By: Karo Stuart Order Number: [id number] Ninoska MD: Karl Lockwood M.D. Interpretive Statements NAME OF STUDY: LEXISCAN SESTAMIBI STRESS TEST INDICATION: [Chest Pain, ] Procedure: At the baseline, the blood pressure was 127/97 mmHg with a heart rate of 61bpm. The electrocardiogram showed normal sinus rhythm, normal axis with normal ST and T's. The Lexiscan was infused over a period of 20 seconds. A total of 0.4 mg of Lexiscan was infused. The stress phase was continued for a total of 5 minutes. Heart rate was at the end of stress phase was 76 bpm and a blood pressure of 130/93 mmHg. The EKG at the peak infusion revealed normal sinus rhythm with no significant ST-T wave changes. Sestamibi was injected 20 seconds after the Lexiscan infusion. Blood pressure at the end of recovery phase was 132/99 mmHg with a heart rate of 77 bpm. Conclusion: 1. Normal EKG response to Lexiscan infusion 2. No Lexiscan induced chest pain or cardiac arrhythmia. 3. Normal blood pressure and heart rate response. 4. Sestamibi/sestamibi perfusion scan pending; see separate report. Electronically Signed On 08-16-2023 11:30:24 ENTERTAINMENT DIRECTOR by Karl Lockwood M.D. [email or web address]
--- NOTE | 2023-07-17 07:17 | NMCV_ITS ---
NM raman perf SPECT r/s* [id number] Deepthi Penn Age: 47 Gender: F : 1975 Exam Date: 07/17/2023 08:08 Ordering Phys: Karo Stuart Technologist: MARIAH Andrade Exam Location: [facility] Indications: CHEST PAIN, ABNORMAL EKG STRESS TEST Please see separate stress test report in [facility] for full findings IMAGE PROTOCOL Rest/Stress 1 Lexiscan Day Radiopharmaceutical Dose (mCi) Administration Site Administered by Rest: Tc-99m 10.5 IV MARIAH Alejandra Sestamibi Stress:Tc-99m 32.4 IV MARIAH Alejandra Sestamibi Rest: 17-Jul-2023 60 Discovery 630 Stress: 17-Jul-2023 30 Discovery 630 0.4mg Lexiscan. Images obtained in supine and prone position. SPECT RESULTS Technical Quality: Excellent Raw Data Analysis: Normal Image Corrections: No attenuation or motion correction applied Summed Stress Score: 1 Summed Rest Score: 2 Summed Difference Score: 1 PERFUSION FINDINGS SPECT images demonstrate homogeneous tracer distribution throughout the myocardium. FUNCTIONAL RESULTS (calculated via Gated SPECT) Stress Image LV EF (%): 70 Stress EDV (mL):92 TID: 0.88 Stress ESV (mL):28 FUNCTIONAL FINDINGS: There is normal left ventricular systolic function. IMPRESSIONS 1. Normal myocardial perfusion imaging with no evidence of ischemia 2. LV systolic function is normal Karl Lockwood MD (Electronically Signed) Final Date: 17 July 2023 11:51 S
[2023-07-17] MEDS: regadenoson 0.4 Mg/5 ml Syringe IVP (08:45)
[2023-07-17 08:59] VITALS: BP 132/99; PULSE 75
== END 2023-07-17 07:04 | disposition home or self-care (01) ==
PROVIDERS: PCP Family Medicine; Visit Provider Registered Nurse
DX: R07.9 Chest pain, unspecified (principal); R94.31 Abnormal electrocardiogram [ECG] [EKG]
CPT/HCPCS: 36415; 78452; 93017; 96374; A9500; J2785

== ENCOUNTER → 2024-06-21 11:20 | Outpatient (BNVA) | payer MEDICARE, SELFPAY | PROVIDERS: PCP Family Medicine; Visit Provider Nurse Practitioner Women's Health | DX: M79.7 Fibromyalgia (principal); M60.9 Myositis, unspecified; Z01.419 Encounter for gynecological examination (general) (routine) without abnormal findings; E83.119 Hemochromatosis, unspecified; M81.0 Age-related osteoporosis without current pathological fracture | CPT/HCPCS: 80053; 82306; 83036; 84443; 85025; 87624 ==

== ENCOUNTER 2024-07-08 13:57 | Outpatient (CLI) | payer MEDICARE, SELFPAY ==
--- NOTE | 2024-07-08 14:30 | XR_ITS ---
WS: [id number] DEXA (DUAL ENERGY X-RAY ABSORPTIOMETRY) Bone mineral density was performed using a [place] PERL machine. HISTORY: M81.0 - Age-related osteoporosis without current patholog... COMPARISON: None available. Lumbar spine BMD (L1-L4): 0.879 g/cm2 T score: -2.5 Z score: -3.5 Total hip BMD: Left: 0.969 g/cm2. T score: -0.3 Z score: -0.8 Right: 0.969 g/cm2. T score: -0.3 Z score: -0.8 10 year probability of a major osteoporotic fracture is 3.5%. XR/XR DEXA axial skeleton* 72467 IMPRESSION: OSTEOPOROSIS based upon the WHO classification for females. Osteoporosis based upon bone mineral density in the lumbar spine.
== END 2024-07-08 13:58 | disposition home or self-care (01) ==
LOC: RAD 13:57
PROVIDERS: PCP Family Medicine; Visit Provider Nurse Practitioner Women's Health
DX: Z13.820 Encounter for screening for osteoporosis (principal); M81.0 Age-related osteoporosis without current pathological fracture
CPT/HCPCS: 77080

== ENCOUNTER 2025-04-28 08:03 | Outpatient (CLI) | payer MEDICARE, SELFPAY ==
--- NOTE | 2025-04-28 08:19 | NM_ITS ---
WS: [id number] NUCLEAR MEDICINE GASTRIC STUDY CLINICAL INFORMATION: GASTROPARESIS TECHNIQUE: Following oral ingestion of cooked egg mixed with 1.05 mCi technetium 99m sulfur colloid, anterior images of the stomach were obtained over the course of 90 minutes. Activity curve was performed over the course of 90 minutes with linear regression analysis. COMPARISON: None. FINDINGS: Oral ingestion of egg mixture T 1/2 emptying 111 minutes (normal 45 to 110 minutes) 23% emptying at 60 minutes 61% emptying 120 minutes [place] [id number] IMPRESSION: Slightly delayed gastric emptying T1/2 111 minutes. (Normal 45 to 110 minutes) *Normal median T1 half 90 minutes for solid egg meal (45-110 minutes). Delayed gastric retention is defined as 90% retained at 1 hour, 60% at 2 hour s, 30% at 3 hours, and 10% at 4 hours (normal percent gastric retention is 37-9 0% at 1 hour, 30-60% at 2 hours, and 0-10% at 4 hours).
== END 2025-04-28 08:04 | disposition home or self-care (01) ==
PROVIDERS: PCP Family Medicine; Visit Provider Internal Medicine Gastroenterology
DX: R11.2 Nausea with vomiting, unspecified (principal); R94.8 Abnormal results of function studies of other organs and systems
CPT/HCPCS: 78264; A9541

== ENCOUNTER 2025-05-11 08:10 | Outpatient (CLI) | payer MEDICARE, SELFPAY ==
--- NOTE | 2025-05-11 08:21 | FL_ITS ---
WS: [id number] Exam: FL barium swallow [id number] Date/Time of Exam: 05/11/2025 8:21 AM Reason For Exam: DYSPHAGIA, UNSPECIFIED TYPE Fluoroscopy time: 1min 16.435191sbk minutes # of spot films: 13 Oral pharyngeal phase of swallowing was normal. The esophagus is smooth in contour with normal motility. No indication of esophageal mass or stricture. Esophagus is patent into the stomach. No hiatal hernia or gastroesophageal reflux observed. FL/FL barium swallow [id number] IMPRESSION: 1. Unremarkable esophagram.
== END 2025-05-11 08:11 | disposition home or self-care (01) ==
LOC: RAD 08:13
PROVIDERS: PCP Family Medicine; Visit Provider Registered Nurse
DX: R13.10 Dysphagia, unspecified (principal)
CPT/HCPCS: 74220